=== PATIENT | male | born 1960 | race Caucasian/White ===

== ENCOUNTER 2024-12-24 14:36 | Emergency (ER) | payer MEDICARE ==
[~2024-12-24] VITALS: Ht 182.9 cm; Wt 127.0 kg
[2024-12-24 15:10] VITALS: BP 180/77
[2024-12-24] MEDS ORDERED: ASPIRIN 81 MG/TAB PO ONE (15:10)
[2024-12-24] MEDS ORDERED: NITROGLYCERIN 0.4 MG/TAB SL ONE (15:10)
[2024-12-24 15:23] LABS: BASO% 0.5 % (0-3); EOS% 0.8 % (0-8); HEMATOCRIT 47.8 % (39.0-50.0); HEMOGLOBIN 16.6 g/dl (14.0-18.0); IMMATURE GRANULOCYTES 1.2 % (0.0-5.0); LYMPH% 11.1 % (15-41); MEAN CELL VOLUME 84.6 fL CALC (80.0-100.0); MEAN CORPUSCULAR HGB 29.4 pG CALC (26.0-32.0); MEAN CORPUSCULAR HGB CONC 34.7 g/dL CAL (32.0-36.0); MONO% 7.1 % (2-13); NEUT# 8.68 thou/uL (1.82-7.42); NEUT% 79.3 % (42-76); RED BLOOD COUNT 5.65 mill/uL (4.70-6.10); RED CELL DISTRI WIDTH 12.3 % (11.5-15.5)
[2024-12-24 15:31] VITALS: BP 191/138
[2024-12-24 15:41] LABS: ALBUMIN 4.2 g/dL (3.2-5.0); BILIRUBIN, TOTAL 0.6 mg/dL (0.2-1.3); CREATININE 0.8 mg/dL (0.7-1.3); POTASSIUM 4.2 mmol/l (3.5-5.1); TOTAL PROTEIN 7.1 g/dL (6.3-8.2)
[2024-12-24 16:03] VITALS: BP 125/82
[2024-12-24 16:30] VITALS: BP 125/82
== END 2024-12-24 16:31 | disposition left against medical advice (07) ==
LOC: ED 14:36
PROVIDERS: Nurse Practitioner
DX: R07.9 Chest pain, unspecified (principal); I11.0 Hypertensive heart disease with heart failure; I50.9 Heart failure, unspecified; I25.10 Atherosclerotic heart disease of native coronary artery without angina pectoris; E78.5 Hyperlipidemia, unspecified; T46.6X6A Underdosing of antihyperlipidemic and antiarteriosclerotic drugs, initial encounter; T50.1X6A Underdosing of loop [high-ceiling] diuretics, initial encounter; Z91.128 Patient's intentional underdosing of medication regimen for other reason; Z53.29 Procedure and treatment not carried out because of patient's decision for other reasons